=== PATIENT | female | born 1930 | race Hispanic/Latino ===

== ENCOUNTER 2018-08-27 10:13 | Emergency (ER) | payer MEDICARE ==
[~2018-08-27] VITALS: Ht 165.1 cm; Wt 108.9 kg
--- NOTE | 2018-08-27 11:16 | Diagnostic Imaging Report ---
EXAM: XR CHEST 2 VIEWS DATE: 08/27/2018 12:00 AM INDICATION: Weakness COMPARISON: None FINDINGS: Lines and Tubes: None Heart and Mediastinum: Heart is mildly enlarged. Mild aortic vascular calcifications. Tortuous descending thoracic aorta. Lungs and Pleura: Minimal biapical scarring. Moderate to large hiatal hernia. 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 IMPRESSION: 1. Chronic changes as above. Signed by: Dr. Brendon Merritt MD on 08/27/2018 11:12 AM
[2018-08-27] MEDS ORDERED: CLONIDINE HCL 0.1 MG TAB PO ONE (11:30)
== END 2018-08-27 12:20 | disposition home or self-care (01) ==
LOC: FSED 10:13
DX: R53.1 Weakness (principal)
CPT/HCPCS: 71046; 80053; 81003; 82553; 83880; 84484; 85025; 93005; 99284

== ENCOUNTER 2021-06-02 19:49 | Inpatient (IN) | payer MEDICARE ==
[~2021-06-02] VITALS: Ht 165.1 cm; Wt 108.9 kg
[2021-06-02] MEDS ORDERED: SODIUM CHLORIDE FLUSH 10 ML SYR INJ PRN (21:30)
[2021-06-02] MEDS ORDERED: FUROSEMIDE INJ 10 MG/ML 4 ML VIAL ONE (22:44)
[2021-06-02] MEDS ORDERED: FUROSEMIDE INJ 10 MG/ML 2 ML VIAL IV ONE (22:45)
[2021-06-02] MEDS ORDERED: ENOXAPARIN SODIUM INJ 100 MG/ML SYR SC STA (22:51)
[2021-06-02] MEDS: ENOXAPARIN SODIUM INJ 100 MG/ML SYR SC SCH (23:00)
[2021-06-02] MEDS ORDERED: METOPROLOL TARTRATE INJ 1 MG/ML VIAL IV ONE (23:15)
[2021-06-03] VITALS (9 sets, daily range): BP systolic 117–127; BP diastolic 55–88
[2021-06-03] MEDS ORDERED: FAMOTIDINE 20 MG TAB PO SCH (07:30)
[2021-06-03] MEDS ORDERED: ACETAMINOPHEN 325 MG TAB PO PRN (09:30)
[2021-06-03] MEDS ORDERED: ONDANSETRON HCL INJ 2MG/ML 2ML 2 MG/ML VIAL IV PRN (09:30)
[2021-06-03] MEDS ORDERED: METOPROLOL TARTRATE 25 MG TAB PO SCH (09:30)
[2021-06-03 10:20] LABS: BASOPHILS % 0.4 % (0.0-1.0); EOSINOPHILS # (AUTO) 0.2 (0.0-0.4); EOSINOPHILS % 1.8 % (0.0-6.0); HEMATOCRIT 36.6 % (34.2-44.1); LYMPHOCYTES # (AUTO) 2.6 (1.0-3.2); LYMPHOCYTES % 31.7 % (18.0-39.1); MEAN CORPUSCULAR HEMOGLOBIN 28.8 pg (28-32); MEAN CORPUSCULAR HGB CONC 32.8 g/dL (31-35); MONOCYTES # (AUTO) 0.7 (0.2-0.8); MONOCYTES % 8.4 % (4.4-11.3); NEUTROPHILS # (AUTO) 4.8 (2.1-6.9); NEUTROPHILS % 57.2 % (38.7-80.0); PLATELET COUNT 136 x10e3/uL (140-360); RED BLOOD COUNT 4.16 x10e6/uL (3.6-5.1); RED CELL DISTRIBUTION WIDTH 14.3 % (11.7-14.4)
[2021-06-03] MEDS: ENOXAPARIN SODIUM INJ 100 MG/ML SYR SC SCH ×2 (11:15→21:54)
[2021-06-03] MEDS: METOPROLOL TARTRATE 25 MG TAB PO SCH ×2 (11:16→18:03)
[2021-06-03 11:17] LABS: ALBUMIN 3.3 g/dL (3.5-5.0); ANION GAP 11.7 mmol/L (8-16); BILIRUBIN,DIRECT 0.2 mg/dL (0.0-0.5); CALCIUM 8.6 mg/dL (8.4-10.2); CHOL/HDL RATIO 3.5 (3.0-3.6); CREATININE, SERUM 0.68 mg/dL (0.57-1.11); POTASSIUM 3.7 mmol/L (3.5-5.1)
[2021-06-03 11:30] LABS: THYROID STIMULATING HORMONE 1.858 uIU/mL (0.350-4.940)
[2021-06-03 12:00] LABS: CREATINE KINASE MB 0.9 ng/mL (0-5.0)
[2021-06-03] MEDS: INSULIN LISPRO 100 UNIT/1 ML 3ML VIAL SQ SCH ×3 (12:40→21:00)
[2021-06-03] MEDS ORDERED: LOSARTAN POTAS100 MG PO (13:59)
[2021-06-03] MEDS ORDERED: GLIPIZIDE ER5 MG PO (13:59)
[2021-06-03] MEDS ORDERED: PRAVASTATIN SOD10 MG PO (13:59)
[2021-06-03] MEDS ORDERED: POTASSIUM CHLO10 ME1 PO (13:59)
[2021-06-03] MEDS ORDERED: AMLODIPINE BESYL5 MG PO (13:59)
[2021-06-03] MEDS ORDERED: JANUVIA100 MG PO (13:59)
[2021-06-03] MEDS ORDERED: FUROSEMIDE40 MG PO (13:59)
[2021-06-03] MEDS ORDERED: METOPROLOL SUCC50 MG PO (13:59)
[2021-06-03] MEDS ORDERED: MYRBETRIQ50 MG PO (14:44)
[2021-06-03 15:56] LABS: CREATINE KINASE MB 0.9 ng/mL (0-5.0)
[2021-06-03] MEDS ORDERED: PRAVASTATIN 20 MG TAB PO SCH (21:00)
[2021-06-04 00:10] VITALS: BP 133/89
[2021-06-04] MEDS: METOPROLOL TARTRATE 25 MG TAB PO SCH ×2 (00:30→06:48)
[2021-06-04 06:20] LABS: BASOPHILS % 0.3 % (0.0-1.0); EOSINOPHILS # (AUTO) 0.2 (0.0-0.4); EOSINOPHILS % 2.3 % (0.0-6.0); HEMATOCRIT 35.4 % (34.2-44.1); HEMOGLOBIN 11.8 g/dL (12.0-16.0); LYMPHOCYTES # (AUTO) 3.2 (1.0-3.2); LYMPHOCYTES % 36.3 % (18.0-39.1); MEAN CORPUSCULAR HEMOGLOBIN 29.5 pg (28-32); MEAN CORPUSCULAR HGB CONC 33.3 g/dL (31-35); MEAN CORPUSCULAR VOLUME 88.5 fL (81-99); MONOCYTES # (AUTO) 0.8 (0.2-0.8); NEUTROPHILS # (AUTO) 4.6 (2.1-6.9); NEUTROPHILS % 51.8 % (38.7-80.0); PLATELET COUNT 111 x10e3/uL (140-360); RED CELL DISTRIBUTION WIDTH 14.1 % (11.7-14.4)
[2021-06-04 06:55] LABS: ANION GAP 12.9 mmol/L (8-16); CALCIUM 8.8 mg/dL (8.4-10.2); CREATININE, SERUM 0.62 mg/dL (0.57-1.11); POTASSIUM 3.9 mmol/L (3.5-5.1)
[2021-06-04] MEDS ORDERED: WIXELA 250-501 EACH (07:11)
[2021-06-04] MEDS: INSULIN LISPRO 100 UNIT/1 ML 3ML VIAL SQ SCH ×4 (07:30→21:00)
[2021-06-04 07:38] VITALS: BP 137/81
[2021-06-04] MEDS ORDERED: ONDANSETRON HCL 4 MG ORAL DISINTEGRATING TAB PO PRN (08:00)
[2021-06-04] MEDS: ENOXAPARIN SODIUM INJ 100 MG/ML SYR SC SCH ×2 (09:00→21:00)
[2021-06-04 09:59] VITALS: BP 137/81
[2021-06-04 11:20] VITALS: BP 129/64
[2021-06-04] MEDS ORDERED: SALMETEROL/FLUTICASONE 250/50 INH PRN (12:00)
[2021-06-04] MEDS: METOPROLOL SUCCINATE 50 MG TAB XL PO SCH (12:29)
[2021-06-04] MEDS ORDERED: ALBUTEROL/IPRATROPIUM 3 ML NEB NEB PRN (13:30)
[2021-06-04 15:38] VITALS: BP 146/82
[2021-06-04 20:00] VITALS: BP 132/81
[2021-06-04] MEDS ORDERED: PRAVASTATIN 20 MG TAB PO SCH (21:00)
[2021-06-05] VITALS: BP 132/83
[2021-06-05 04:00] VITALS: BP 140/82
[2021-06-05 05:56] LABS: BASOPHILS % 0.3 % (0.0-1.0); EOSINOPHILS # (AUTO) 0.2 (0.0-0.4); EOSINOPHILS % 1.7 % (0.0-6.0); HEMATOCRIT 36.3 % (34.2-44.1); HEMOGLOBIN 12.6 g/dL (12.0-16.0); LYMPHOCYTES # (AUTO) 4.4 (1.0-3.2); LYMPHOCYTES % 44.7 % (18.0-39.1); MEAN CORPUSCULAR HEMOGLOBIN 30.7 pg (28-32); MEAN CORPUSCULAR HGB CONC 34.7 g/dL (31-35); MEAN CORPUSCULAR VOLUME 88.3 fL (81-99); MONOCYTES # (AUTO) 0.8 (0.2-0.8); NEUTROPHILS # (AUTO) 4.4 (2.1-6.9); PLATELET COUNT 110 x10e3/uL (140-360); RED BLOOD COUNT 4.11 x10e6/uL (3.6-5.1); RED CELL DISTRIBUTION WIDTH 14.3 % (11.7-14.4)
[2021-06-05 07:30] VITALS: BP 140/67
[2021-06-05] MEDS: INSULIN LISPRO 100 UNIT/1 ML 3ML VIAL SQ SCH ×2 (07:30→12:16)
[2021-06-05] MEDS: ENOXAPARIN SODIUM INJ 100 MG/ML SYR SC SCH (09:00)
[2021-06-05 11:29] VITALS: BP 135/71
[2021-06-05] MEDS ORDERED: ELIQUIS5 MG PO (12:10)
[2021-06-05] MEDS: METOPROLOL SUCCINATE 50 MG TAB XL PO SCH (12:15)
[2021-06-05 15:22] VITALS: BP 146/83
[2021-06-05] MEDS ORDERED: APIXABAN 5 MG TABLET PO SCH (17:00)
== END 2021-06-05 17:03 | disposition home or self-care (01) | DRG 309 ==
LOC: FSED 19:55 → ERHOLD 21:23 → MED/SURG 06-03 00:59
PROVIDERS: ADMIT Internal Medicine; ATTEND Internal Medicine
DX: I48.91 Unspecified atrial fibrillation (principal); I50.32 Chronic diastolic (congestive) heart failure; D69.59 Other secondary thrombocytopenia; E66.01 Morbid (severe) obesity due to excess calories; Z68.39 Body mass index [BMI] 39.0-39.9, adult; Z79.01 Long term (current) use of anticoagulants; Z96.652 Presence of left artificial knee joint; I11.0 Hypertensive heart disease with heart failure; I44.60 Unspecified fascicular block; K44.9 Diaphragmatic hernia without obstruction or gangrene; Z85.3 Personal history of malignant neoplasm of breast; Z90.12 Acquired absence of left breast and nipple; I25.10 Atherosclerotic heart disease of native coronary artery without angina pectoris; E11.65 Type 2 diabetes mellitus with hyperglycemia; E78.5 Hyperlipidemia, unspecified
CPT/HCPCS: 36415; 71045; 71046; 80048; 80053; 80061; 80076; 81003; 82550; 82553; 82948; 84443; 84484; 85025; 93005; 93306; 94640; 99284; J1650; J1940; U0002